=== PATIENT | female | born 1975 | race Caucasian/White ===

== ENCOUNTER 2018-12-12 08:28 | Day surgery (SDC) | payer BC ==
[2018-12-11 09:32] VITALS: BMI 32.8
[2018-12-12] MEDS ORDERED: Oxymetazoline HCl 0.05% ( 15 ML ) ONE ×2 (08:43→11:30)
[2018-12-12] MEDS ORDERED: Lidocaine 1% w/Epinephrine 1:100K 20 ML VIAL ONE (10:31)
[2018-12-12] MEDS ORDERED: Fentanyl 100 MCG/2 ML VIAL ONE ×2 (10:36→12:03)
[2018-12-12] MEDS ORDERED: methylPREDNISolone Sod Succ 40 MG VIAL ONE (10:36)
[2018-12-12] MEDS ORDERED: HYDROcodone/Acetaminophen 5/325 mg Tablet ONE (13:52)
[2018-12-12] MEDS ORDERED: Glycopyrrolate 0.2 MG/ML 5 ML SYRINGE ONE (15:33)
[2018-12-12] MEDS ORDERED: PROPOFOL 200 MG/20 ML VIAL ONE (15:33)
[2018-12-12] MEDS ORDERED: Ondansetron PF 4 MG/2 ML Vial ONE (15:33)
[2018-12-12] MEDS ORDERED: Rocuronium Bromide 10 MG/ML (10ML VIAL) ONE (15:33)
[2018-12-12] MEDS ORDERED: Lidocaine 1% PF 5 ML VIAL ONE (15:33)
--- NOTE | 2018-12-13 10:11 | OP ---
DATE OF PROCEDURE: 12/12/2018 PREOPERATIVE DIAGNOSES: 1. Chronic rhinosinusitis. 2. Bilateral inferior turbinate hypertrophy. 3. Nasal obstruction. POSTOPERATIVE DIAGNOSES: 1. Chronic rhinosinusitis. 2. Bilateral inferior turbinate hypertrophy. 3. Nasal obstruction. PROCEDURES: 1. Bilateral endoscopic sinus surgery, total ethmoidectomies. 2. Bilateral endoscopic sinus surgery, maxillary antrostomies. 3. Bilateral endoscopic sinus surgery, frontal sinusotomies. 4. Bilateral inferior turbinate submucosal resection. ESTIMATED BLOOD LOSS: 20 mL. COMPLICATIONS: None. ANESTHESIA: GETA. DESCRIPTION OF PROCEDURE: The patient was taken to the operating room and placed supine on the table. General endotracheal anesthesia was obtained by the anesthesia staff. Tube was secured in the left lower lip. The patient was placed in a beach chair position. The patient was then prepped in standard nasal procedure. Following this, the 0-degree endoscope was used to examine the nasal cavity. 1% lidocaine with 1:100,000 epinephrine was injected into the inferior turbinates, middle turbinates, and lateral nasal wall bilaterally. Following this, the middle turbinates were gently medialized using the [place] elevator and the uncinate process was identified bilaterally. The uncinate process was then anteriorly fractured using the ball-ended probe and the uncinate was removed using the 0-degree microdebrider and upbiting [place] forceps bilaterally. Following this, the natural maxillary sinus ostia was identified and was gently widened bilaterally using the curved microdebrider and the straight [place] forceps. Following this, the ethmoidal bulla was identified and was punctured on its medial and inferior aspect bilaterally. Following this, ethmoidal bulla was removed using the 0-degree microdebrider and the up-biting [place] forceps. Following this, the grand lamella was identified and was punctured in the posterior ethmoidal cells. Working from posterior to anterior, the ethmoidal cells were opened using the 0-degree microdebrider and curved [place] forceps. Following this, the 45-degree scope and the curved microdebrider were used to further open the frontal recess cells bilaterally, which exposed the frontal sinus ostia bilaterally. Following this, frontal sinus ostia was widened using the curved microdebrider bilaterally. Following this, the nasal cavity was irrigated. Mirapex was placed in the middle meatus. Following this, the inferior turbinates were then punctured on the anterior and inferior aspect and the submucosal microdebrider was used to submucosally resect the anterior and inferior portions of the inferior turbinates. The patient tolerated the procedure well. Job ID: [id number]
== END 2018-12-12 14:26 | disposition home or self-care (01) ==
LOC: SDC 08:28
PROVIDERS: ATTEND Otolaryngology Plastic Surgery within the Head & Neck
PROC: 099S8ZZ Drainage of Right Frontal Sinus, Via Natural or Artificial Opening Endoscopic (ICD-10-PCS; principal; 2018-12-12)
PROC: 099T8ZZ Drainage of Left Frontal Sinus, Via Natural or Artificial Opening Endoscopic (ICD-10-PCS; principal; 2018-12-12)
PROC: 09TV8ZZ Resection of Left Ethmoid Sinus, Via Natural or Artificial Opening Endoscopic (ICD-10-PCS; principal; 2018-12-12)
PROC: 09TU8ZZ Resection of Right Ethmoid Sinus, Via Natural or Artificial Opening Endoscopic (ICD-10-PCS; principal; 2018-12-12)
PROC: 09TL7ZZ Resection of Nasal Turbinate, Via Natural or Artificial Opening (ICD-10-PCS; principal; 2018-12-12)
PROC: 099Q8ZZ Drainage of Right Maxillary Sinus, Via Natural or Artificial Opening Endoscopic (ICD-10-PCS; principal; 2018-12-12)
PROC: 099R8ZZ Drainage of Left Maxillary Sinus, Via Natural or Artificial Opening Endoscopic (ICD-10-PCS; principal; 2018-12-12)
DX: J32.9 Chronic sinusitis, unspecified (principal); J34.3 Hypertrophy of nasal turbinates; J34.89 Other specified disorders of nose and nasal sinuses; J30.0 Vasomotor rhinitis; Z79.899 Other long term (current) drug therapy; Z88.2 Allergy status to sulfonamides
CPT/HCPCS: 36415; 85014; J2001; J2405; J2704; J2920; J3010

== ENCOUNTER 2020-01-31 08:50 | Emergency (ER) | payer BC ==
--- NOTE | 2020-01-31 10:21 | ULT ---
BILATERAL LOWER EXTREMITY VENOUS DUPLEX EXAM: Date: 01/31/2020 HISTORY: Bilateral leg pain and swelling with right calf pain. FINDINGS: Real-time color Doppler evaluation of right and left lower extremity was performed from groin to calf . This includes evaluation of the common femoral, superficial and profunda femoral, saphenous, poplit eal, and trifurcation veins. This shows patent deep venous systems bilaterally. There is normal compr essibility and augmentation. There is no evidence of deep venous thrombosis. IMPRESSION: No evidence of deep venous thrombosis of either lower extremity. POS: MED
== END 2020-01-31 10:35 | disposition home or self-care (01) ==
LOC: ERS 08:50
DX: M79.661 Pain in right lower leg (principal)
CPT/HCPCS: 93970